=== PATIENT | male | born 1995 | race American Indian/Alaskan Native ===

== ENCOUNTER 2018-08-24 12:12 | Emergency (ER) | payer OTHER ==
[2018-08-24] MEDS: MORPHINE IV ONE ×2 (12:20→13:15)
[2018-08-24] MEDS ORDERED: NACL 0.9% 1000 ML 1,000 ML IV ONE (12:20)
[2018-08-24] MEDS ORDERED: BOOSTRIX IM ONE (12:20)
[2018-08-24] MEDS ORDERED: ZOFRAN IV ONE (12:20)
[2018-08-24] MEDS ORDERED: ZOFRAN ONE (12:20)
[2018-08-24] MEDS ORDERED: MORPHINE ONE ×2 (12:20→12:41)
[2018-08-24] MEDS ORDERED: NACL 0.9% 1000 ML 1,000 ML ONE (12:22)
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
[2018-08-24] MEDS ORDERED: MORPHINE IV ONE ×2 (12:33→13:19)
[2018-08-24 12:54] LABS: Creatine Kinase MB 3.6 ng/mL (0.0-4.0)
[2018-08-24 12:55] LABS: Alanine Aminotransferase 13 units/L (7-56); Albumin 4.5 g/dL (3.9-5); BUN/Creatinine Ratio 8; Blood Urea Nitrogen 6 mg/dL (9-20); Calcium 8.9 mg/dL (8.4-10.2); Hemolysis Index 6
[2018-08-24 12:57] LABS: Bilirubin,Direct < 0.2 mg/dL (0-0.2)
[2018-08-24 13:11] LABS: Basophils # (Auto) 0.1 K/mm3 (0.0-0.1); Basophils % (Auto) 0.9 % (0.0-1.8); Eosinophils # (Auto) 0.2 K/mm3 (0.0-0.4); Eosinophils % (Auto) 1.8 % (0.0-4.3); Hematocrit 44.6 % (35.5-45.6); Hemoglobin 15.5 gm/dl (11.8-15.2); Lymphocytes # (Auto) 4.2 K/mm3 (1.2-5.4); Lymphocytes % (Auto) 47.8 % (13.4-35.0); Mean Corpuscular HGB Conc 35 % (32-34); Mean Corpuscular Volume 94 fl (84-94); Monocytes # (Auto) 0.7 K/mm3 (0.0-0.8); Monocytes % (Auto) 7.9 % (0.0-7.3); Platelet Count 364 K/mm3 (140-440); Red Blood Count 4.75 M/mm3 (3.65-5.03); Red Cell Distribution Width 14.5 % (13.2-15.2)
[2018-08-24 13:23] LABS: INR 0.96 (0.87-1.13)
[2018-08-24 13:24] LABS: Partial Thromboplastin Time 30.5 Sec. (24.2-36.6)
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
[2018-08-24 14:50] VITALS: BP 117/88
== END 2018-08-24 14:56 | disposition home or self-care (01) ==
LOC: EDBD → ED 12:12
DX: S81.802A Unspecified open wound, left lower leg, initial encounter (principal); W34.09XA Accidental discharge from other specified firearms, initial encounter; Y93.89 Activity, other specified; Y92.89 Other specified places as the place of occurrence of the external cause; Y99.8 Other external cause status
CPT/HCPCS: 29515; 36415; 73590; 80048; 80076; 82550; 82553; 85025; 85610; 85730; 90471; 90715; 96361; 96374; 96375; 96376; 99284; G0480; J2270; J2405; J7030; 80320

== ENCOUNTER 2018-08-26 16:26 | Emergency (ER) | payer SELFPAY ==
[2018-08-26 16:33] VITALS: BP 124/78
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
== END 2018-08-26 22:00 | disposition left against medical advice (07) ==
LOC: EDBD → ED 16:26
DX: S81.802A Unspecified open wound, left lower leg, initial encounter (principal); Z53.21 Procedure and treatment not carried out due to patient leaving prior to being seen by health care provider; W34.00XA Accidental discharge from unspecified firearms or gun, initial encounter; Y93.89 Activity, other specified; Y92.89 Other specified places as the place of occurrence of the external cause; Y99.8 Other external cause status

== ENCOUNTER 2018-08-28 19:11 | Emergency (ER) | payer OTHER ==
[2018-08-28 19:19] VITALS: BP 122/72
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
[2018-08-28] MEDS ORDERED: PERCOCET 5/325 PO ONE (22:11)
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
== END 2018-08-28 22:42 | disposition home or self-care (01) ==
LOC: ED 19:11
DX: B35.3 Tinea pedis (principal); J45.909 Unspecified asthma, uncomplicated; F17.200 Nicotine dependence, unspecified, uncomplicated

== ENCOUNTER 2018-09-28 16:57 | Emergency (ER) | payer OTHER ==
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
[2018-09-28 17:26] VITALS: BP 120/82
--- NOTE | 2018-09-28 19:38 | XRay Report ---
PROCEDURE: XR TIBIA FIBULA 2V LT HISTORY: left leg pain FINDINGS: AP and lateral views of the left tibia and fibula were acquired and compared to prior radio graphs of August 24, 2018. Again seen is a comminuted fracture of the distal fibular diaphysis which lies in near-anatomic align ment. No bridging callus is seen. The major proximal and distal fracture fragments are by a pproximately 1.4 cm The tibia appears intact. IMPRESSION: Unchanged appearance to comminuted fracture of distal fibular diaphysis This document is electronically signed by Alton Man MD., September 28 2018 07:36:51 PM ET
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
== END 2018-09-28 20:01 | disposition home or self-care (01) ==
LOC: ED 16:57
DX: S82.409A Unspecified fracture of shaft of unspecified fibula, initial encounter for closed fracture (principal); W34.00XA Accidental discharge from unspecified firearms or gun, initial encounter; J45.909 Unspecified asthma, uncomplicated; F17.200 Nicotine dependence, unspecified, uncomplicated; F12.10 Cannabis abuse, uncomplicated; Y93.89 Activity, other specified; Y92.89 Other specified places as the place of occurrence of the external cause; Y99.8 Other external cause status